=== PATIENT | male | born 1995 | race Caucasian/White ===

== ENCOUNTER 2017-11-26 00:53 | Emergency (ER) | payer BC ==
[~2017-11-26] VITALS: Ht 193 cm; Wt 127.0 kg
[2017-11-26 01:05] VITALS: TEMP 37; Ht 193 cm; Wt 127.0 kg
--- NOTE | 2017-11-26 01:08 | EMERGENCY ROOM VISIT NOTE ---
History Report prepared by Scribe: Lavonne Johnson Under the Supervision of: Dr. Jey Chavez M.D. First contact with patient: 00:55 Chief Complaint: ALCOHOL OVERDOSE Stated Complaint: ALCOHOL OVERDOSE History of Present Illness The patient is a 19 year old male who presents to the Emergency Room with complaints of an episode of alcohol overdose that occurred just prior to arrival. Per nursing staff, the patient's friends were concerned about how much alcohol the patient consumed today and made him throw up before bringing him to the ED. HPI limited by intoxication. Source of History: nursing staff History Limited By: intoxication Onset: just prior to arrival Position: other (generalized) Quality: other (alcohol overdose) Timing: other (episode) Associated Symptoms: + vomiting Review of Systems See HPI for pertinent positives & negatives. A total of 10 systems reviewed and were otherwise negative. Past Medical & Surgical Medical Problems: (1) No Known Active Medical Problems Family History No pertinent family history Social History Alcohol Use: other (yes) Marital Status: single Occupation Status: student Current/Historical Medications No Active Prescriptions or Reported Meds Allergies Coded Allergies: No Known Allergies (Unverified , 11/26/17) Physical Exam Vital Signs Date Time Temp Pulse Resp B/P (MAP) Pulse Ox O2 Delivery O2 Flow Rate FiO2 11/26/17 07:19 85 16 128/75 97 11/26/17 06:05 70 14 104/43 94 Room Air 11/26/17 05:05 65 12 113/49 94 Room Air 11/26/17 04:43 84 11/26/17 04:00 75 18 178/126 95 Room Air 11/26/17 03:00 65 12 123/65 95 Room Air 11/26/17 02:16 76 18 109/88 96 Nasal Cannula 2.0 11/26/17 01:09 93 Nasal Cannula 2.0 11/26/17 01:09 93 Nasal Cannula 2.0 11/26/17 01:09 65 11/26/17 01:05 37.0 70 18 132/77 90 Room Air Physical Exam Vital signs reviewed. General: Odor of EtOH in the breath, disheveled [id number] male. No signs of trauma. HEENT: Mild scleral injection bilaterally, PERRLA, neck supple, dry mucous membranes. Cardiovascular: Regular rate and rhythm, no extra sounds. Pulmonary: Clear to auscultation bilaterally, normal work of breathing. Abdomen: Soft, nontender, nondistended, positive bowel sounds. Musculoskeletal: Upper and lower extremities atraumatic, no peripheral edema Skin: Warm, dry, no rash. Atraumatic. Neurologic: Patient is currently nonverbal. Medical Decision & Procedures Laboratory Results 11/26/17 01:22 Test 11/26/17 01:22 Anion Gap 13.0 mmol/L (3-11) Est Creatinine Clear Calc Drug Dose 29.9 ml/min Estimated GFR () 56.4 Estimated GFR (Non- 48.6 BUN/Creatinine Ratio 16.7 (10-20) Calcium Level 8.5 mg/dl (8.5-10.1) Ethyl Alcohol mg/dL 217.0 mg/dl (0-3) Labs reviewed by ED physician. ED Course 0050: Past medical records reviewed. The patient was evaluated in room B4B. A complete history and physical examination was performed. 0740: Upon reexamination the patient is resting. I discussed results and treatment plan with the patient. He verbalizes agreement and understanding. The patient is ready for discharge. Medical Decision Etiologies such as alcohol intoxication, toxicologic, infection, hypoglycemia, electrolyte abnormalities, cardiac sources, intracerebral event, neurologic, as well as others were entertained. This is a 22-year-old male who arrives to the emergency department during a period of high volume and high acuity during single provider coverage. Patient arrives after his friends were concerned that they could not take care of him due to his level of intoxication. The patient has soiled himself. He was placed face down on the monitor. Continuous pulse oximetry was obtained. A blood alcohol level was obtained. The patient was frequently monitored and reassessed during the night. After some time his alcohol intoxication did clear. The patient will be discharged home however strongly recommended that he discussed this case with his parents. Medication Reconcilliation Current Medication List: was personally reviewed by me Impression Primary Impression: Alcohol intoxication Scribe Attestation The scribe's documentation has been prepared under my direction and personally reviewed by me in its entirety. I confirm that the note above accurately reflects all work, treatment, procedures, and medical decision making performed by me. Departure Information Dispostion Home / Self-Care Prescriptions No Active Prescriptions or Reported Meds Referrals No Doctor, Assigned (PCP) Forms HOME CARE DOCUMENTATION FORM, IMPORTANT VISIT INFORMATION Patient Instructions My [facility] Additional Instructions STRONGLY encourage you to discuss this visit with your parents! SHARON= .220 @ 0130, sober @ 0830 You have been examined and treated today on an emergency basis only. This is not a substitute for, or an effort to provide, complete comprehensive medical care. It is impossible to recognize and treat all injuries or illnesses in a single emergency department visit. It is therefore important that you follow up closely with [facility]. Call as soon as possible for an appointment. Thank you for your time and consideration. I look forward to speaking with you again soon. Please don't hesitate to call us if you have any questions. Problem Qualifiers Primary Impression: Alcohol intoxication Complication of substance-induced condition: uncomplicated Qualified Codes: F10.920 - Alcohol use, unspecified with intoxication, uncomplicated
[2017-11-26 01:09] VITALS: O2SAT 93
[2017-11-26 01:50] LABS: CALCIUM 8.5 mg/dl (8.5-10.1); CREATININE 1.1 mg/dl (0.60-1.40); POTASSIUM 3.4 mmol/L (3.5-5.1)
[2017-11-26 07:19] VITALS: BP 128/75; PULSE 85; O2SAT 97
== END 2017-11-26 07:20 | disposition home or self-care (01) ==
LOC: EDBD 00:55 → C.EDB 00:55
DX: F10.929 Alcohol use, unspecified with intoxication, unspecified (principal); Y90.7 Blood alcohol level of 200-239 mg/100 ml